=== PATIENT | female | born 1970 | race African-American/Black ===

== ENCOUNTER 2019-01-24 13:04 | Emergency (ER) | payer BC ==
[~2019-01-24] VITALS: Ht 170.2 cm; Wt 122.0 kg
[2019-01-24] MEDS ORDERED: diazePAM 5 MG TABLET PO ONE (14:00)
[2019-01-24] MEDS ORDERED: ONDANSETRON ODT 4 MG TAB.RAPDIS. PO ONE (14:15)
[2019-01-24] MEDS ORDERED: MECL25TA3 PO (14:33)
[2019-01-24] MEDS ORDERED: DIAZ5TAB PO (14:33)
--- NOTE | 2019-01-24 14:33 | PHYS DOC ---
Past Medical History Past Medical History: Diabetes-Type II, Hypertension Past Surgical History: No Surgical History Alcohol Use: Occasionally Drug Use: None Adult General Chief Complaint Chief Complaint: DIZZY/LIGHT HEADED HPI HPI Patient is a 48-year-old female with a history of vertigo presents with dizziness. She states it feels like the room spinning especially when she turns her head to the left. She states is been ongoing for 2 days but has been prog ressive. Yesterday she had a pretty intense therapy session on her right shoulder which seemed to set it off. She's been doing her prescribed exercises but she is not had relief yet. She did try to take a meclizine today which also did not work. She denies any headache or lateralizing neurologic weakness.[] Review of Systems Review of Systems Constitutional: Denies fever or chills [] Eyes: Denies change in visual acuity, redness, or eye pain [] HENT: Denies nasal congestion or sore throat [] Respiratory: Denies cough or shortness of breath [] Cardiovascular: No additional information not addressed in HPI [] GI: Denies abdominal pain, nausea, vomiting, bloody stools or diarrhea [] : Denies dysuria or hematuria [] Musculoskeletal: Denies back pain or joint pain [] Integument: Denies rash or skin lesions [] Neurologic: Reports dizziness room spinning[] Endocrine: Denies polyuria or polydipsia [] All other systems were reviewed and found to be within normal limits, except as documented in this note. Current Medications Current Medications Current Medications Medications (Trade) Dose Ordered Sig/[facility] Start Time Stop Time Status Last Admin Dose Admin Diazepam (Valium) 5 mg 1X ONCE 01/24/19 14:00 01/24/19 14:06 DC 01/24/19 14:12 5 MG Ondansetron HCl (Zofran Odt) 4 mg 1X ONCE 01/24/19 14:15 01/24/19 14:16 DC 01/24/19 14:20 4 MG Allergies Allergies Allergies Coded Allergies Type Severity Reaction Last Updated Verified buspirone Allergy Intermediate rash 01/24/19 Yes Physical Exam Physical Exam Constitutional: Well developed, well nourished, mild distress, non-toxic ryne earance. [] HENT: Normocephalic, atraumatic, bilateral external ears normal, oropharynx moist, no oral exudates, nose normal. [] Eyes: PERRLA, EOMI, conjunctiva normal, no discharge. [] Neck: Normal range of motion, no tenderness, supple, no stridor. [] Cardiovascular:Heart rate regular rhythm, no murmur [] Lungs & Thorax: Bilateral breath sounds clear to auscultation [] Abdomen: Bowel sounds normal, soft, no tenderness, no masses, no pulsatile masses. [] Skin: Warm, dry, no erythema, no rash. [] Back: No tenderness, no CVA tenderness. [] Extremities: No tenderness, no cyanosis, no clubbing, ROM intact, no edema. [] Neurologic: Alert and oriented X 3, normal motor function, normal sensory function, no focal deficits noted, no nystagmus. [] Psychologic: Anxious[] Current Patient Data Vital Signs Vital Signs Date Time Temp Pulse Resp B/P (MAP) Pulse Ox O2 Delivery O2 Flow Rate FiO2 01/24/19 13:28 97.7 91 172/92 (118) 100 Room Air 97.7 EKG EKG [] Radiology/Procedures Radiology/Procedures [] Course & Med Decision Making Course & Med Decision Making Pertinent Labs and Imaging studies reviewed. (See chart for details) [ED course: Evaluation reveals a 48-year-old female with classic signs of vertigo. She was given Valium and Zofran during her stay in the department which did help ease her symptoms. I've instructed the patient to go home rest tonight prescribe her some more Valium and meclizine to take as needed. She is to continue her vertigo exercises as previously prescribed.] Dragon Disclaimer Dragon Disclaimer This electronic medical record was generated, in whole or in part, using a voice recognition dictation system. Departure Departure Impression: Primary Impression: Vertigo Disposition: 01 HOME, SELF-CARE Condition: IMPROVED Referrals: JEROMY SURESH (PCP) Patient Instructions: Benign Positional Vertigo, Vertigo Additional Instructions: Continue your in her ear/vertigo exercises as previously prescribed. Return to [facility] emergency department with any new or concerning symptoms Scripts Diazepam (VALIUM) 5 Mg Tablet 5 MG PO Q8HRS PRN for severe dizziness, #15 TAB Prov: MARIE MOORE DO 01/24/19 Meclizine Hcl (MECLIZINE HCL) 25 Mg Tablet 1 TAB PO Q8HRS PRN for dizziness, #30 TAB 30 Refills Prov: MARIE MOORE DO 01/24/19 MARIE MOORE DO Jan 24, 2019 14:33
[2019-01-24 15:14] VITALS: BP 142/80
== END 2019-01-24 15:47 | disposition home or self-care (01) ==
LOC: ER 13:04
DX: R42 Dizziness and giddiness (principal); F41.9 Anxiety disorder, unspecified; I10 Essential (primary) hypertension; E11.9 Type 2 diabetes mellitus without complications; Z88.8 Allergy status to other drugs, medicaments and biological substances
CPT/HCPCS: 99283; Q0162